=== PATIENT | male | born 1960 | race Hispanic/Latino ===

== ENCOUNTER 2020-08-17 10:43 | Emergency (ER) | payer OTHER ==
[2020-08-17] MEDS ORDERED: Ketorolac Tromethamine 30 MG/ML VIAL ONE (11:03)
--- NOTE | 2020-08-17 11:14 | RAD ---
EXAM: 4 views of the right knee HISTORY: Knee pain for 2 weeks COMPARISON: None FINDINGS: No knee effusion is seen. There is no evidence of acute fracture or dislocation. No signifi cant degenerative changes are seen. No soft tissue swelling is present. IMPRESSION: No evidence of acute osseous abnormality.
== END 2020-08-17 11:27 | disposition home or self-care (01) ==
LOC: ERS 10:43
DX: M25.561 Pain in right knee (principal); M25.562 Pain in left knee; M72.2 Plantar fascial fibromatosis; I10 Essential (primary) hypertension; E78.5 Hyperlipidemia, unspecified; Z79.899 Other long term (current) drug therapy
CPT/HCPCS: J1885

== ENCOUNTER 2022-04-26 14:54 | Emergency (ER) | payer OTHER | END 2022-04-26 16:07 | disposition home or self-care (01) | LOC: ERS 14:54 | DX: B34.9 Viral infection, unspecified (principal); I10 Essential (primary) hypertension; E78.5 Hyperlipidemia, unspecified; Z79.899 Other long term (current) drug therapy; Z20.822 Contact with and (suspected) exposure to COVID-19 | CPT/HCPCS: 99283; U0003; U0005 ==